=== PATIENT | female | born 1950 | race Caucasian/White ===

== ENCOUNTER 2017-12-22 07:57 | Emergency (ER) | payer BC ==
[2017-12-22 09:00] LABS: Bilirubin Small (Negative); Blood, Urine Negative (Negative); Clarity Slightly Cloudy (Clear); Glucose, Urine (Dipstick) 250 mg/dL (Negative); Leukocyte Trace (Negative); Nitrite Negative (Negative); Protein, Urine (Dipstick) 30 mg/dL (Neg-Trace); Specific Gravity, Urine 1.015 (1.005-1.030)
[2017-12-22 09:09] LABS: Bacteria/HPF 2+ HPF (None Seen); Hyaline Casts/LPF NONE SEEN LPF (0-3 Hyaline); RBC/HPF 0-3 HPF (0-3)
== END 2017-12-22 09:34 | disposition home or self-care (01) ==
LOC: SCSER 07:57
DX: M79.1 Myalgia (principal); R50.9 Fever, unspecified; E11.9 Type 2 diabetes mellitus without complications; E03.9 Hypothyroidism, unspecified; I10 Essential (primary) hypertension; Z79.899 Other long term (current) drug therapy; Z79.84 Long term (current) use of oral hypoglycemic drugs; Z79.82 Long term (current) use of aspirin
CPT/HCPCS: 81003; 81015; 87086; 99283

== ENCOUNTER 2018-02-13 11:42 | Outpatient (CLI) | payer BC ==
--- NOTE | 2018-02-13 12:24 | RAD ---
PA AND LATERAL VIEWS CHEST: Date: 02/13/18 HISTORY: Cough. FINDINGS: The heart size is normal. The lungs are expanded without confluent areas of consolidation, pneumothor aces, or pleural effusions. No acute osseous abnormalities are seen. IMPRESSION: No acute process. POS: OFF
== END 2018-02-13 11:43 | disposition home or self-care (01) ==
LOC: SCSRAD 11:42
PROVIDERS: ATTEND Family Medicine
DX: J40 Bronchitis, not specified as acute or chronic (principal)
CPT/HCPCS: 71046

== ENCOUNTER 2022-07-21 12:53 | Outpatient (CLI) | payer MEDICARE, BC | END 2022-07-21 12:54 | disposition home or self-care (01) | LOC: TBSIIMAG 12:53 | PROVIDERS: ATTEND Family Medicine | DX: M51.16 Intervertebral disc disorders with radiculopathy, lumbar region (principal); M48.061 Spinal stenosis, lumbar region without neurogenic claudication; M48.07 Spinal stenosis, lumbosacral region | CPT/HCPCS: 72148 ==

== ENCOUNTER 2022-10-09 08:30 | Outpatient (CLI) | payer MEDICARE, BC ==
[2022-10-09 10:57] LABS: Hemoglobin 8.7 g/dL (12.0-15.5); Mean Corpuscular HGB CONC 28.9 g/dL (32.0-36.0); Mean Corpuscular Hemoglobin 20.6 pg (27.0-33.0); Mean Corpuscular Volume 71.3 fl (81.6-98.3); Mean Platelet Volume 9.8 fl (7.4-10.4); Platelet Count 292 10x3/uL (150-450); RBC Distribution Width 19.6 % (11.5-14.5); Red Blood Cell (RBC) Count 4.22 10x6/uL (3.90-5.03); White Blood Cell (WBC) Count 7.2 10x3/uL (3.5-10.5)
[2022-10-09 11:10] LABS: INR-International Normal Ratio 0.9; PTT 30.2 sec (22.0-33.0); Prothrombin Time 10.3 sec (9.5-12.1)
[2022-10-09 11:11] LABS: Anion Gap 19 mmol/L (10-20); BUN (Urea Nitrogen) 30 mg/dL (9.8-20.1); Calc. Creatinine Clearance 0 mL/min (70-130); Carbon Dioxide 21 mmol/L (23-31); Chloride 100 mmol/L (98-107); Estimated GFR 38; Glucose 266 mg/dL (80-115); Potassium 3.8 mmol/L (3.5-5.1); Sodium 136 mmol/L (136-145)
== END 2022-10-09 08:31 | disposition home or self-care (01) ==
LOC: LABBT 08:30
PROVIDERS: ATTEND Surgery
DX: Z01.818 Encounter for other preprocedural examination (principal); M51.16 Intervertebral disc disorders with radiculopathy, lumbar region; M48.062 Spinal stenosis, lumbar region with neurogenic claudication
CPT/HCPCS: 80048; 85027; 85610; 85730; 93005; 93010

== ENCOUNTER 2022-11-28 09:59 | Outpatient (CLI) | payer MEDICARE, BC ==
[2022-11-28 11:32] LABS: Hemoglobin 9.2 g/dL (12.0-15.5); Mean Corpuscular HGB CONC 28.9 g/dL (32.0-36.0); Mean Corpuscular Hemoglobin 20.3 pg (27.0-33.0); Mean Corpuscular Volume 70.2 fl (81.6-98.3); Mean Platelet Volume 9.1 fl (7.4-10.4); Platelet Count 331 10x3/uL (150-450); RBC Distribution Width 19.9 % (11.5-14.5); Red Blood Cell (RBC) Count 4.53 10x6/uL (3.90-5.03); White Blood Cell (WBC) Count 8.2 10x3/uL (3.5-10.5)
[2022-11-28 11:50] LABS: Anion Gap 16 mmol/L (10-20); BUN (Urea Nitrogen) 23 mg/dL (9.8-20.1); Calc. Creatinine Clearance 0 mL/min (70-130); Calcium 9.9 mg/dL (7.8-10.44); Carbon Dioxide 23 mmol/L (23-31); Chloride 103 mmol/L (98-107); Estimated GFR 50; Glucose 151 mg/dL (80-115); Potassium 4.4 mmol/L (3.5-5.1); Sodium 138 mmol/L (136-145)
[2022-11-28 12:05] LABS: INR-International Normal Ratio 0.9; Prothrombin Time 10.2 sec (9.5-12.1)
== END 2022-11-28 10:00 | disposition home or self-care (01) ==
LOC: LABBT 09:59
PROVIDERS: ATTEND Surgery
DX: Z01.812 Encounter for preprocedural laboratory examination (principal); M51.16 Intervertebral disc disorders with radiculopathy, lumbar region; M48.062 Spinal stenosis, lumbar region with neurogenic claudication
CPT/HCPCS: 80048; 85027; 85610; 85730

== ENCOUNTER 2022-12-01 09:51 | Observation (INO) | payer MEDICARE, BC ==
[2022-11-30 11:04] VITALS: BMI 19.7
[2022-12-01] MEDS ORDERED: Vancomycin 1 GM VIAL ONE (10:09)
[2022-12-01] MEDS ORDERED: Thrombin 5000 UNITS/5 ML VIAL ONE (10:09)
[2022-12-01] MEDS ORDERED: Sodium Chloride 0.9% 100 ML ONE (10:17)
[2022-12-01] MEDS ORDERED: CEFAZOLIN 2 GM VIAL ONE (10:17)
[2022-12-01] MEDS ORDERED: Fentanyl 250 MCG/5 ML VIAL ONE (10:19)
[2022-12-01] MEDS ORDERED: Rocuronium Bromide 10 MG/ML (10ML VIAL) ONE (10:31)
[2022-12-01] MEDS ORDERED: Dexamethasone 20 MG/5 ML VIAL ONE (10:31)
[2022-12-01] MEDS ORDERED: ePHEDrine 50 MG/ML VIAL ONE (10:31)
[2022-12-01] MEDS ORDERED: NEOSTIGMINE 3 MG/3 ML SYR 3 MG/3 ML SYRINGE ONE (10:31)
[2022-12-01] MEDS ORDERED: Ondansetron PF 4 MG/2 ML Vial ONE (10:31)
[2022-12-01] MEDS ORDERED: Ketorolac Tromethamine 30 MG/ML VIAL ONE (10:31)
[2022-12-01] MEDS ORDERED: PHENYLEPHRINE-NS 100 MCG/ML 10 ML SYRINGE ONE (10:31)
[2022-12-01] MEDS ORDERED: PROPOFOL 200 MG/20 ML VIAL ONE (10:31)
[2022-12-01] MEDS ORDERED: Lidocaine 1% PF 5 ML VIAL ONE (10:31)
[2022-12-01] MEDS ORDERED: Glycopyrrolate 0.2 MG/ML 5 ML SYRINGE ONE (10:31)
[2022-12-01 10:52] LABS: SARS-CoV-2 NAA Rapid Test Not Detected (NotDetected)
[2022-12-01] MEDS ORDERED: Promethazine HCl 25 MG/ML VIAL IM PRN (12:12)
[2022-12-01] MEDS ORDERED: Ondansetron HCl/PF 4 MG/2 ML Vial IVP PRN (12:12)
[2022-12-01] MEDS ORDERED: PACU-Morphine 4MG/ML VIAL SLOW IVP PRN (12:12)
[2022-12-01] MEDS ORDERED: Morphine Sulfate 2 MG/ML SYRINGE SLOW IVP PRN (12:12)
[2022-12-01] MEDS ORDERED: HYDROmorphone 2 MG/ML VIAL SLOW IVP PRN (12:12)
[2022-12-01] MEDS ORDERED: traMADol HCl 50 MG TAB PO PRN (12:52)
[2022-12-01] MEDS ORDERED: Morphine 2 MG/ML VIAL SLOW IVP PRN (12:52)
[2022-12-01] MEDS ORDERED: Acetaminophen 325 MG TAB PO PRN (12:52)
[2022-12-01] MEDS ORDERED: diphenhydrAMINE 25 MG CAP PO PRN (12:52)
[2022-12-01] MEDS ORDERED: Ondansetron PF 4 MG/2 ML Vial IVP PRN (12:52)
[2022-12-01] MEDS ORDERED: HYDROmorphone 0.5 MG/0.5 ML SYRINGE ONE ×3 (12:53→13:27)
[2022-12-01] MEDS ORDERED: Methocarbamol 500 MG TAB PO PRN (12:55)
[2022-12-01] MEDS ORDERED: hydrALAZINE 20 MG/ML VIAL SLOW IVP PRN (12:57)
[2022-12-01] MEDS ORDERED: Fentanyl 100 MCG/2 ML VIAL ONE ×3 (13:08→13:49)
[2022-12-01] MEDS: HYDROcodone/Acetaminophen 7.5/325 mg Tablet PO PRN ×2 (14:35→20:51)
[2022-12-01] MEDS: Sodium Chloride 0.9% 1,000 ML IV SCH (14:36)
[2022-12-01] MEDS: CEFAZOLIN 2 GM in Sodium Chloride 0.9% 100 ML IVPB SCH (17:34)
[2022-12-01] MEDS: metFORMIN 500 MG TAB PO SCH (17:34)
[2022-12-01] MEDS ORDERED: Atorvastatin Calcium 20 MG TAB PO SCH (21:00)
[2022-12-02] MEDS: Acetaminophen/Codeine 30-300mg Tablet PO PRN ×2 (02:00→09:01)
[2022-12-02] MEDS: CEFAZOLIN 2 GM in Sodium Chloride 0.9% 100 ML IVPB SCH (02:01)
[2022-12-02] MEDS: Sodium Chloride 0.9% 1,000 ML IV SCH (02:05)
[2022-12-02 06:17] LABS: #Eosinphils 0.1 thou/uL (0.0-0.7); #Lymphocytes 1.3 thou/uL (1.20-3.40); #Monocytes 0.9 thou/uL (0.11-0.59); #Neutrophils 6.9 thou/uL (1.40-6.50); %Basophils 0.2 % (0.0-1.0); %Eosinophils 0.6 % (0.0-10.0); %Lymphocytes 13.8 % (21.0-51.0); %Monocytes 9.7 % (0.0-10.0); %Neutrophils 75.8 % (42.0-75.0); Hemoglobin 7.5 g/dL (12.0-16.0); Mean Corpuscular HGB CONC 31.6 g/dL (32.0-36.0); Mean Corpuscular Volume 69.7 fl (78.0-98.0); Mean Platelet Volume 8.7 fL (7.4-10.4); Platelet Count 237 10x3/uL (130-400); RBC Distribution Width 17.5 % (11.5-14.5); Red Blood Cell (RBC) Count 3.42 mill/uL (4.20-5.40); White Blood Cell (WBC) Count 9.1 10x3/uL (4.8-10.8)
[2022-12-02] MEDS ORDERED: Empagliflozin 25 MG TAB PO SCH (09:00)
[2022-12-02] MEDS ORDERED: Loratadine 10 MG TAB PO SCH (09:00)
[2022-12-02] MEDS ORDERED: Losartan/Hydrochlorothiazide 100 mg/25 mg Tablet PO SCH (09:00)
[2022-12-02] MEDS ORDERED: Hydrochlorothiazide 25 MG TAB PO SCH (09:00)
[2022-12-02] MEDS: metFORMIN 500 MG TAB PO SCH (09:00)
[2022-12-02] MEDS ORDERED: Glimepiride 4 MG TAB PO SCH (09:00)
[2022-12-02 12:14] VITALS: BP 155/78; TEMP 99
[2022-12-02] MEDS: HYDROcodone/Acetaminophen 7.5/325 mg Tablet PO PRN (12:21)
[2022-12-02] MEDS ORDERED: Ezetimibe 10 MG TAB PO SCH (21:00)
[2022-12-04] MEDS ORDERED: Tirzepatide [Mounjaro] 7.5 MG/0.5 ML Pen.Injctr SC SCH (13:24)
== END 2022-12-02 12:40 | disposition home or self-care (01) ==
LOC: SDC 09:51 → SJJU 14:47
PROVIDERS: ADMIT Surgery; ATTEND Surgery
PROC: 01NB0ZZ Release Lumbar Nerve, Open Approach (ICD-10-PCS; principal; 2022-12-01)
PROC: 0SB40ZZ Excision of Lumbosacral Disc, Open Approach (ICD-10-PCS; 2022-12-01)
DX: M48.062 Spinal stenosis, lumbar region with neurogenic claudication (principal); M48.07 Spinal stenosis, lumbosacral region; M51.16 Intervertebral disc disorders with radiculopathy, lumbar region; D53.9 Nutritional anemia, unspecified; Z79.82 Long term (current) use of aspirin; Z79.84 Long term (current) use of oral hypoglycemic drugs; Z79.85 Long-term (current) use of injectable non-insulin antidiabetic drugs; Z79.899 Other long term (current) drug therapy; Z20.822 Contact with and (suspected) exposure to COVID-19
CPT/HCPCS: 36430; 63030; 63035; 63047; 82962; 85025; 86850; 86900; 86901; 86920; P9016; U0002; 36415; 36416; 96365; 96375; G0378; J1170; J2272; J3010; J3370; J3490

== ENCOUNTER 2023-06-15 12:21 | Outpatient (CLI) | payer MEDICARE, BC | END 2023-06-15 12:22 | disposition home or self-care (01) | LOC: SCSRAD 12:21 | PROVIDERS: ATTEND Family Medicine | DX: R05.1 Acute cough (principal) | CPT/HCPCS: 71046 ==